=== PATIENT | male | born 1940 | race Two or more races ===

== ENCOUNTER 2021-05-04 05:45 | Emergency (ER) | payer OTHER ==
[~2021-05-04] VITALS: Ht 157.5 cm; Wt 51.3 kg
[2021-05-04] MEDS ORDERED: ZETIA10 MG (06:10)
[2021-05-04] MEDS ORDERED: FENOFIBRATE50 MG (06:10)
[2021-05-04] MEDS ORDERED: FORTAMET500 MG (06:10)
[2021-05-04] MEDS ORDERED: MUPIROCIN22 GM TOP ×2 (08:55→08:57)
[2021-05-04] MEDS ORDERED: CEPHALEXIN500 MG PO (08:56)
== END 2021-05-04 09:12 | disposition home or self-care (01) ==
LOC: ER 05:45
DX: S81.822A Laceration with foreign body, left lower leg, initial encounter (principal); W45.8XXA Other foreign body or object entering through skin, initial encounter; Y93.89 Activity, other specified; Y92.098 Other place in other non-institutional residence as the place of occurrence of the external cause; Y99.8 Other external cause status